=== PATIENT | male | born 1985 | race Caucasian/White ===

== ENCOUNTER → 2018-06-14 09:41 | Outpatient (CLI) | payer OTHER, SELFPAY ==
--- NOTE | 2018-06-14 | DI.RAD.S_ITS ---
PROCEDURE: FL SHOULDER INJECTION MR/CT RT INDICATIONS: RT SHOULDER PAIN TECHNIQUE: The indications, alternatives, benefits, risks, and complications of the procedure were explained to the patient. Written informed consent was obtained and placed in the chart. The shoulder was examined fluoroscopically and a site for needle placement chosen for entry into the glenohumeral joint from an anterior approach. The skin was prepped and draped in a sterile fashion, and 1% lidocaine infiltrated from skin down to joint capsule. A spinal needle was inserted into the glenohumeral joint, and a small amount of iodinated contrast media injected to confirm intra-articular placement of the needle tip. This was followed by approximately 12 mL dilute solution of a gadolinium containing MR contrast agent. The needle was removed and a dressing was applied. The patient was given postprocedural instructions and sent to the MR suite for MR imaging. FINDINGS: A single fluoroscopic spot image demonstrates intra-articular location of injected iodinated contrast. IMPRESSION: Successful fluoroscopically guided administration of dilute Gadolinium solution into the shoulder joint for MR arthrogram. Dictated by: Chuck Mcdonald M.D. on 06/14/2018 at 12:22 Approved by: Chuck Mcdonald M.D. on 06/14/2018 at 12:23
--- NOTE | 2018-06-14 | DI.MRI.S_ITS ---
PROCEDURE: MR SHOULDER RT W CON INDICATIONS: RT SHOULDER PAIN TECHNIQUE: After the administration of 12 mL of dilute intra-articular Gadolinium contrast, oblique coronal T1 and T2 spin echo with fat saturation, oblique sagittal T1 spin echo with and without fat saturation, oblique sagittal T2 fast spin echo with fat saturation, axial T1 spin echo with fat saturation through the shoulder. COMPARISON: [facility], , IN SHOULDER INJECTION MR/CT RT, 06/14/2018, 10:05. FINDINGS: Image quality: Excellent. Rotator cuff: Mild infraspinatus thickening/tendinopathy and low-grade articular and bursal surface fraying. The supraspinatus and teres minor appear intact. Minimal thickening of the subscapularis tendon in keeping with low-grade tendinopathy. No atrophy of the rotator cuff musculature. Bones and bursae: No bone marrow contusions or fractures. Moderate to severe acromioclavicular joint marrow signal changes and periarticular soft tissue edema. There is erosive appearance (image 10 series 5) at the lateral margin of the clavicle raising the possibility of infectious or inflammatory etiologies. Please correlate clinically. The acromion demonstrates conventional anatomy, without an os acromiale. There is minimal subacromial/subdeltoid bursal fluid without T1 shortening. Capsule and soft tissues: Gadolinium signal intensity infiltrate superior labrum is also noted within the substance of the inferior and posteroinferior labrum in keeping with circumferential tear. There is circumferential degenerative spurring and sclerosis of the glenoid rim The long head of the biceps tendon demonstrates normal location and morphology. The rotator interval appears normal, without fibrosis. The coracohumeral ligament is of normal thickness. No intra-articular bodies. IMPRESSION: Infraspinatus tendinopathy with low-grade articular and bursal surface fraying. Low-grade subscapularis tendinopathy and thickening. Minimal subacromial/subdeltoid bursitis. Extensive acromioclavicular bone marrow edema and periarticular soft tissue change/edema. Possible erosive appearance raises the possibility of infectious or inflammatory arthritis. Please correlate clinically. Circumferential labral tear, with associated glenoid rim osseous changes in keeping with chronic age. Please correlate clinically. Dictated by: Robert Gamino M.D. on 06/14/2018 at 11:11 Approved by: Robert Gamino M.D. on 06/14/2018 at 11:22
== END ==
PROVIDERS: Visit Provider General Practice
DX: M25.511 Pain in right shoulder (principal); M75.51 Bursitis of right shoulder
CPT/HCPCS: 23350; 73222; 77002

== ENCOUNTER → 2018-12-13 13:52 | Outpatient (CLI) | payer OTHER, SELFPAY ==
--- NOTE | 2018-12-13 | DI.RAD.S_ITS ---
PROCEDURE: FL SHOULDER INJECTION MR/CT LT INDICATIONS: LT SHOULDER PAIN TECHNIQUE: The indications, alternatives, benefits, risks, and complications of the procedure were explained to the patient. Written informed consent was obtained and placed in the chart. The shoulder was examined fluoroscopically and a site for needle placement chosen for entry into the glenohumeral joint from an anterior approach. The skin was prepped and draped in a sterile fashion, and 1% lidocaine infiltrated from skin down to joint capsule. A spinal needle was inserted into the glenohumeral joint, and a small amount of iodinated contrast media injected to confirm intra-articular placement of the needle tip. This was followed by approximately 12 mL dilute solution of a gadolinium containing MR contrast agent. The needle was removed and a dressing was applied. The patient was given postprocedural instructions and sent to the MR suite for MR imaging. FINDINGS: A single fluoroscopic spot image demonstrates intra-articular location of injected iodinated contrast. IMPRESSION: Successful fluoroscopically guided administration of dilute Gadolinium solution into the shoulder joint for MR arthrogram. Dictated by: Robert Gamino M.D. on 12/13/2018 at 15:57 Approved by: Robert Gamino M.D. on 12/13/2018 at 15:57
--- NOTE | 2018-12-13 | DI.MRI.S_ITS ---
PROCEDURE: MR SHOULDER LT W CON INDICATIONS: left SHOULDER PAIN TECHNIQUE: After the administration of 12 mL of dilute intra-articular Gadolinium contrast, oblique coronal T1 and T2 spin echo with fat saturation, oblique sagittal T1 spin echo with and without fat saturation, oblique sagittal T2 fast spin echo with fat saturation, axial T1 spin echo with fat saturation through the shoulder. COMPARISON: , MR, MR SHOULDER RT W CON, 06/14/2018, 10:35. FINDINGS: Image quality: Excellent. Rotator cuff: Infraspinatus tendinopathy and low-grade intrasubstance signal change. There is also subtle bursal surface fraying, of the critical zone image 14 series 8. Supraspinatus tendon demonstrates low-grade bursal surface fraying image 10 series 8, however no high-grade or full-thickness tear is seen. Teres minor grossly intact. Subscapularis tendon appears intact. No atrophy of the rotator cuff musculature although there is mild infiltration of the infraspinatus muscle Bones and bursae: No bone marrow contusions or fractures. Moderate acromioclavicular joint degeneration. The acromion demonstrates conventional anatomy, without an os acromiale. Capsule and soft tissues: There is marked circumferential irregularity involving the superior, anterior posterior and inferior labral segments, with suspected gadolinium signal intensity within the substance of the superior labrum, for example image 11 series 10 with an appearance to suggest bucket-handle tear. There is also blunting and possible chondrolabral separation of the inferior segment with adjacent underlying subchondral cystic marrow changes. Differential of this appearance includes postoperative labral hypertrophy/scarring. Ill-defined labral signal changes at the anterior and posterior labrum demonstrated on image 14 series 6. Of note, no definite posterior subluxation of the humeral head relative to the glenoid. The long head of the biceps tendon demonstrates normal location and morphology. The rotator interval appears normal, without fibrosis. The coracohumeral ligament is of normal thickness. Low signal possible intra-articular loose body measuring 2-3 mm seen within the subscapular recess. IMPRESSION: Labral irregularity most prominently involving the superior and inferior segments, and the presence of intrasubstance gadolinium signal intensity as well as adjacent subchondral degenerative signal changes in the glenoid suggests labral tear (versus postsurgical appearance) however recommend correlation to surgical history. Additional blunting and irregular signal changes involving the anterior and posterior labrum which could reflect circumferential involvement. Low-grade infraspinatus tendinopathy and bursal surface fraying. Low-grade supraspinatus bursal surface fraying. 3 mm loose body seen in the subscapular recess. Dictated by: Robert Gamino M.D. on 12/13/2018 at 15:20 Approved by: Robert Gamino M.D. on 12/13/2018 at 15:36
== END ==
DX: M25.512 Pain in left shoulder (principal); M24.012 Loose body in left shoulder
CPT/HCPCS: 23350; 73222; 77002

== ENCOUNTER → 2019-11-14 07:47 | Outpatient (CLI) | payer OTHER, SELFPAY ==
--- NOTE | 2019-11-14 | DI.RAD.S_ITS ---
PROCEDURE: FL SHOULDER INJECTION MR/CT LT INDICATIONS: PAIN IN LEFT SHOULDER TECHNIQUE: The indications, alternatives, benefits, risks, and complications of the procedure were explained to the patient. Written informed consent was obtained and placed in the chart. The shoulder was examined fluoroscopically and a site for needle placement chosen for entry into the glenohumeral joint from an anterior approach. The skin was prepped and draped in a sterile fashion, and 1% lidocaine infiltrated from skin down to joint capsule. A spinal needle was inserted into the glenohumeral joint, and a small amount of iodinated contrast media injected to confirm intra-articular placement of the needle tip. This was followed by approximately 12 mL dilute solution of a gadolinium containing MR contrast agent. The needle was removed and a dressing was applied. The patient was given postprocedural instructions and sent to the MR suite for MR imaging. FINDINGS: A single fluoroscopic spot image demonstrates intra-articular location of injected iodinated contrast. IMPRESSION: Successful fluoroscopically guided administration of dilute Gadolinium solution into the shoulder joint for MR arthrogram. Dictated by: Robert Gamino M.D. on 11/14/2019 at 10:57 Approved by: Robert Gamino M.D. on 11/14/2019 at 10:58
--- NOTE | 2019-11-14 | DI.MRI.S_ITS ---
PROCEDURE: MR SHOULDER LT W CON INDICATIONS: PAIN IN LEFT SHOULDER TECHNIQUE: After the administration of 12 mL of dilute intra-articular Gadolinium contrast, oblique coronal T1 and T2 spin echo with fat saturation, oblique sagittal T1 spin echo with and without fat saturation, oblique sagittal T2 fast spin echo with fat saturation, axial T1 spin echo with fat saturation through the shoulder. COMPARISON: [facility], MR, MR SHOULDER LT W CON, 12/13/2018, 14:24. FINDINGS: Image quality: Excellent. Rotator cuff: Low-grade bursal surface fraying of the supraspinatus tendon mild background tendinopathy as before. Mild infraspinatus bursal surface fraying as before. The teres minor tendon appears intact. Subscapularis tendon appears grossly intact. No atrophy of the rotator cuff muscles Bones and bursae: No bone marrow contusions or fractures. Moderate acromioclavicular joint degeneration. Small AC joint effusion. The superior and inferior acromioclavicular ligaments are not well-seen. There is prominent periarticular soft tissue and marrow edema Acromion demonstrates conventional anatomy, without an os acromiale. Mild subacromial-subdeltoid bursitis. Capsule and soft tissues: Intrasubstance gadolinium signal intensity within the superior segment of the labrum, and minimally blunted appearance of the posterior labrum. There is also chondrolabral separation and anteroinferior labral tear image 13/6, image 12/6. Recommend correlation to prior surgical history. Chondrolabral separation may be slightly more conspicuous since 12/13/18 however the remaining findings are unchanged. There are postsurgical changes in the glenoid in keeping with prior labral repair. Long head of the biceps tendon intact. The rotator interval appears normal, without fibrosis. Coracohumeral ligament intact. IMPRESSION: Moderate acromioclavicular joint degeneration, with interval increase in periarticular soft tissue and marrow edema. Poorly visualized superior and inferior acromioclavicular ligaments raising the possibility of acute versus chronic sprain. Please correlate to point tenderness Low-grade bursal surface fraying of the supraspinatus tendon and mild background tendinopathy, unchanged Mild infraspinatus bursal surface fraying, unchanged Mild subacromial-subdeltoid bursitis as before Slight interval progression of anteroinferior chondrolabral separation. The remaining labral intrasubstance signal abnormalities appear grossly unchanged since 12/13/18. This could reflect postsurgical appearance versus labral tear. Please correlate clinically Dictated by: Robert Gamino M.D. on 11/14/2019 at 10:08 Approved by: Robert Gamino M.D. on 11/14/2019 at 10:54
== END ==
PROVIDERS: Visit Provider Orthopaedic Surgery
DX: M25.512 Pain in left shoulder (principal); M19.012 Primary osteoarthritis, left shoulder; M75.52 Bursitis of left shoulder
CPT/HCPCS: 23350; 73222; 77002